=== PATIENT | female | born 1965 | race Hispanic/Latino ===

== ENCOUNTER → 2020-09-04 | Outpatient (CLI) | payer MEDICARE ==
[~2020-09-04] MED LIST: AMLO-257 PO; CA C1TAB95 PO; CALC-1125 PO; CALC0.253 PO; FOLI1TAB85 PO; FURO40TA5 PO; IRON150C15 PO; METO50TA18 PO; OMEP-272 PO; POTA20TA82 PO; ROSU10TA22 PO; SITA25TA5 PO
== END | disposition home or self-care (01) ==
LOC: SHCH 10:43
PROVIDERS: ATTEND Internal Medicine Cardiovascular Disease
DX: I10 Essential (primary) hypertension (principal); R06.02 Shortness of breath
CPT/HCPCS: 93306; 93356

== ENCOUNTER 2020-09-21 07:49 | Day surgery (SDC) | payer MEDICARE ==
[2020-09-19 08:57] LABS: EOSINOPHILS % (AUTO) 5.3 % (0.0-8.0); HEMATOCRIT 31.5 % (36-48); LYMPHOCYTES % (AUTO) 21.5 % (21.0-51.0); MEAN CORPUSCULAR HGB CONC 30.8 g/dL (32.0-36.0); MEAN CORPUSCULAR VOLUME 90.8 fL (79-99); MONOCYTES % (AUTO) 14.4 % (3.0-13.0); NEUTROPHILS % (AUTO) 56.5 % (40.0-77.0); PLATELET COUNT (AUTO) 221 K/uL (130-400); RED BLOOD CELL COUNT(AUTO) 3.47 MIL/uL (4.00-5.50); RED CELL DISTRIBUTION WIDTH 14.6 % (11.0-15.5)
[2020-09-19 09:07] LABS: INR 0.94 (0.85-1.15); PROTHROMBIN TIME 10.3 SEC (9.6-11.6)
[2020-09-19 09:08] LABS: APPEARANCE,URINE Cloudy (CLEAR); BILIRUBIN,URINE Negative (NEGATIVE); COLOR,URINE Yellow (YELLOW); GLUCOSE, URINE (UA) 250 mg/dL (NEGATIVE); KETONES,URINE Negative (NEGATIVE); LEUKOCYTE ESTERASE ,URINE Small (NEGATIVE); NITRATE,URINE Negative (NEGATIVE); OCCULT BLOOD,URINE Nonhemolyzed Trace (NEGATIVE); PH,URINE 6.5 (5.0-8.0); PROTEIN,URINE >=1000 mg/dL (NEGATIVE)
[2020-09-19 09:08] LABS: PARTIAL THROMBOPLASTIN TIME 25.9 SEC (26.3-35.5)
[2020-09-19 09:21] LABS: BACTERIA,URINE Moderate /HPF (None Seen); RBC,URINE 0-1 /HPF (0-1); WBC,URINE 0-1 /HPF (0-1)
[2020-09-19 09:25] LABS: POTASSIUM 4.1 mmol/L (3.5-5.1)
[2020-09-19 09:33] LABS: CREATININE 10.2 mg/dL (0.5-1.5)
[2020-09-19 10:08] VITALS: BP 116/59
[2020-09-21] VITALS (10 sets, daily range): BP systolic 111–159; BP diastolic 48–67
[~2020-09-21] VITALS: Ht 157.5 cm; Wt 63.7 kg
[~2020-09-21 07:49] MED LIST changes: +0.9%NACL 500ML 500 ML IV SCH; -AMLO-257 PO; +AMLO-258 PO; -CALC-1125 PO; +CALC667T8 PO; -FURO40TA5 PO; +LACT10SO5 PO; +LORA10TA7 PO; +METO10TA3 PO; +MINO2.5T3 PO; +OLME40TA18 PO; +ONDA-104 PO; -SITA25TA5 PO; +SITA50TA PO
[2020-09-21] MEDS ORDERED: NITROGLYCERIN 2 MG VIAL IV ONE (12:24)
[2020-09-21] MEDS ORDERED: LIDOCAINE HCL 400MG/20ML VIAL ONE (12:25)
[2020-09-21] MEDS ORDERED: IOHEXOL 350 MG/ML 100ML INFUS..BTL IV ONE (12:25)
[2020-09-21] MEDS ORDERED: IODIXANOL 320 MG/ML 100 ML VIAL ONE (12:25)
[2020-09-21] MEDS ORDERED: MIDAZOLAM HCL 1 MG/ML 2ML VIAL ONE (13:27)
[2020-09-21] MEDS ORDERED: DEXTROSE 50%-WATER 50 ML DISP.SYRIN IV PRN (14:00)
[2020-09-21] MEDS ORDERED: 0.9%NACL 10ML VIAL IVP SCH (14:00)
[2020-09-21] MEDS ORDERED: INSULIN HUMULIN R 100 UNIT/ML 3ML SQ SCH (16:30)
== END 2020-09-21 18:10 | disposition home or self-care (01) ==
LOC: DAH 07:49
PROVIDERS: ATTEND Internal Medicine Cardiovascular Disease
DX: R93.1 Abnormal findings on diagnostic imaging of heart and coronary circulation (principal); R06.00 Dyspnea, unspecified; E11.22 Type 2 diabetes mellitus with diabetic chronic kidney disease; I25.10 Atherosclerotic heart disease of native coronary artery without angina pectoris; Z76.82 Awaiting organ transplant status; I13.2 Hypertensive heart and chronic kidney disease with heart failure and with stage 5 chronic kidney disease, or end stage renal disease; N18.6 End stage renal disease; I50.32 Chronic diastolic (congestive) heart failure; E78.5 Hyperlipidemia, unspecified; E78.00 Pure hypercholesterolemia, unspecified; I25.2 Old myocardial infarction; Z82.49 Family history of ischemic heart disease and other diseases of the circulatory system; Z79.01 Long term (current) use of anticoagulants; Z79.899 Other long term (current) drug therapy; Z99.2 Dependence on renal dialysis; Z87.01 Personal history of pneumonia (recurrent); Z98.51 Tubal ligation status; Z83.3 Family history of diabetes mellitus
CPT/HCPCS: 36415; 71045; 75630; 80048; 81001; 82948 ×2; 85025; 85610; 85730; 87088; 93005; 93458; A4215 ×2; A4216; A4221; A4222; A4223 ×3; A4606; A4663; C1760; C1894 ×2; J1644; J2250; J3490 ×2; Q9965; Q9967 ×2; 36200; 99156; 99157

== ENCOUNTER → 2022-11-15 | Outpatient (CLI) | payer MEDICARE ==
[~2022-11-15] MED LIST changes: -0.9%NACL 500ML 500 ML IV SCH; -CA C1TAB95 PO; -IRON150C15 PO; +POTA-202 PO; -POTA20TA82 PO
[2022-11-15 15:30] LABS: ALBUMIN 3.7 g/dL (3.5-5.0); CREATININE 1.8 mg/dL (0.5-1.5); POTASSIUM 4.9 mmol/L (3.5-5.1); TOTAL PROTEIN, SERUM 7.1 g/dL (6.0-8.3)
== END | disposition home or self-care (01) ==
LOC: LAB 12:54
PROVIDERS: ATTEND Nurse Practitioner Acute Care
DX: E78.5 Hyperlipidemia, unspecified (principal); I25.10 Atherosclerotic heart disease of native coronary artery without angina pectoris
CPT/HCPCS: 36415; 80053; 80061

== ENCOUNTER → 2024-01-22 | Outpatient (CLI) | payer MEDICARE ==
[2024-01-22 16:25] LABS: CHOLESTEROL 214 mg/dL (<200); HDL CHOLESTEROL 85 mg/dL (35-85); LDL DIRECT 115 mg/dL (0-99); TRIGLYCERIDES 72 mg/dL (30-200)
== END | disposition home or self-care (01) ==
LOC: LAB 11:38
PROVIDERS: ATTEND Nurse Practitioner Acute Care
DX: E78.5 Hyperlipidemia, unspecified (principal)
CPT/HCPCS: 36415; 80061